=== PATIENT | female | born 1980 | race Hispanic/Latino ===

== ENCOUNTER → 2023-04-22 | Emergency (ER) | payer SELFPAY ==
[2023-04-22 09:04] LABS: Absolute Lymphocytes (CBC) 2.4 K/uL (0.7-4.9); Hematocrit 39.3 % (36.0-45.0); Lymphocytes % 42.1 % (15.3-44.8); MCV 84.1 fL (80-100); Platelets 238 thou/uL (152-406); RBC Red Blood Cell Count 4.67 M/uL (3.86-4.86)
[2023-04-22 09:22] LABS: Potassium 3.4 mEq/L (3.5-5.1); Troponin High Sensitivity 3.9 pg/mL (<58.9)
--- NOTE | 2023-04-22 09:32 | RAD REPORT ---
EXAM DESCRIPTION: [place] Single View04/22/2023 9:23 am CLINICAL HISTORY: CHEST PAIN COMPARISON: No comparisons TECHNIQUE: Portable AP view of the chest. FINDINGS: The lungs are clear. No pneumothorax or effusion. The cardiomediastinal contours are unre markable. IMPRESSION: No acute cardiopulmonary process.
--- NOTE | 2023-04-22 11:00 | ER ---
Nurse's Notes [facility] Name: Camila Hammond Age: 43 yrs Sex: Female : 1980 Arrival Date: 04/22/2023 Time: 08:39 Bed 5 Private MD: Diagnosis: Chest pain, unspecified Presentation: 04/22 08:46 Chief complaint: Patient states: CP for a few days. Coronavirus screen: Client denies ll1 travel out of the [place] in the last 14 days. At this time, the client does not indicate any symptoms associated with coronavirus-19. Ebola Screen: Patient denies travel to an Ebola-affected area in the 21 days before illness onset. Initial Sepsis Screen: Does the patient meet any 2 criteria? No. Patient's initial sepsis screen is negative. Does the patient have a suspected source of infection? No. Patient's initial sepsis screen is negative. Risk Assessment: Do you want to hurt yourself or someone else? Patient reports no desire to harm self or others. Onset of symptoms was April 20, 2023. 08:46 Method Of Arrival: Ambulatory ll1 08:46 Acuity: FELIX 3 ll1 Triage Assessment: 08:47 General: Appears uncomfortable, Behavior is calm, cooperative, appropriate for age. ll1 Pain: Complains of pain in chest. Cardiovascular: Reports chest pain. 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 - Social history:: Smoking status: Patient denies any tobacco usage or history of. - Family history:: not pertinent. - Hospitalizations: : No recent hospitalization is reported. Screenin:01 [facility] ED Fall Risk Assessment (Adult) History of falling in the last 3 months, ap3 including since admission No falls in past 3 months (0 pts). Abuse screen: Denies threats or abuse. Nutritional screening: No deficits noted. Tuberculosis screening: No symptoms or risk factors identified. Assessment: 09:06 General: Appears in no apparent distress. Behavior is calm, cooperative, appropriate ap3 for age. Pain: Complains of pain in chest Pain began gradually. Pain: Neuro: Level of Consciousness is awake, alert, obeys commands, Oriented to person, place, time, situation, Appropriate for age. Cardiovascular: Patient's skin is warm and dry. Respiratory: Airway is patent Respiratory effort is even, unlabored, Respiratory pattern is regular, symmetrical. Vital Signs: 08:46 BP 141 / 85; Pulse 67; Resp 16; Temp 98.1; Pulse Ox 100% on R/A; ll1 09:57 BP 130 / 87; Pulse 62; Pulse Ox 98% ; ap3 11:07 BP 130 / 87; Pulse 84; Pulse Ox 100% ; ap3 ED Course: 08:40 Patient arrived in ED. rg4 08:41 Federico Jones MD is Attending Physician. rn 08:46 Arm band placed on Patient placed in an exam room, on a stretcher. ll1 08:47 Triage completed. ll1 08:47 Alisa Falk, ACE is Primary Nurse. ap3 09:01 Initial lab(s) drawn, by me, sent to lab. EKG done, by ED staff, reviewed by Federico Jones MD. Inserted saline lock: 20 gauge in right antecubital area, using aseptic technique. Blood collected. 09:01 Patient maintains SpO2 saturation greater than 95% on room air. ap3 09:02 Patient has correct armband on for positive identification. Bed in low position. Call ap3 light in reach. Side rails up X 1. Adult w/ patient. engine monitor on. Pulse ox on. NIBP on. 09:02 Troponin HS Sent. ap3 09:02 NT PRO-BNP Sent. ap3 09:02 CBC with Diff Sent. ap3 09:02 Basic Metabolic Panel Sent. ap3 09:25 XRAY Chest (1 view) In Process Unspecified. EDMS 11:07 No provider procedures requiring assistance completed. IV discontinued, intact, ap3 bleeding controlled, No redness/swelling at site. Pressure dressing applied. 11:08 Provided Education on: discharge instructions. ap3 Administered Medications: No medications were administered Medication: 11:08 VIS not applicable for this client. ap3 Outcome: 10:59 Discharge ordered by . rn 11:08 Discharged to home ambulatory, with family, ap3 11:08 Condition: good 11:08 Discharge instructions given to patient, Instructed on discharge instructions, follow up and referral plans. Demonstrated understanding of instructions, follow-up care, 11:08 Patient left the ED. ap3 Signatures: Dispatcher [employer] EDMS Federico Jones MD MD rn Garcia, Rubi rg4 Alisa Falk RN RN ap3 Familia Candelaria RN RN ll1 Corrections: (The following items were deleted from the chart) 09:40 09:06 D-DIMER+COAG.LAB.BRZ drawn and sent. ap3 EDMS
--- NOTE | 2023-04-22 11:00 | EDPHYS ---
Physician Documentation [facility] Name: Camila Hammond Age: 43 yrs Sex: Female : 1980 Arrival Date: 04/22/2023 Time: 08:39 Bed 5 Private MD: ED Physician Federico Jones HPI: 04/22 08:57 This 43 yrs old Female presents to ER via Ambulatory with complaints of Arm rn Pain, Chest Pain. 08:57 The patient or guardian reports chest pain that is located primarily in the anterior rn chest wall, left. Onset: 3 day(s) ago. The pain radiates to the left arm. Associated signs and symptoms: Pertinent negatives: abdominal pain, cough, diaphoresis, palpitations, shortness of breath, syncope, vomiting. The chest pain is described as aching, sharp. Duration: The patient or guardian reports multiple episodes, that are intermittent. Modifying factors: The symptoms are alleviated by nothing. the symptoms are aggravated by nothing. Severity of pain: At its worst the pain was moderate in the emergency department the pain has improved. The patient has not experienced similar symptoms in the past. Patient reports approximately 3 days of intermittent left-sided chest pain that radiates to the left arm. No previous medical problems. Does not take any medication. No trauma. No cough or shortness of breath. No hemoptysis. No history of DVT or PE. No family of cardiac disease at her age but positive for cardiac disease at an older age. Does not smoke. No worsening with exertion.. 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 - Social history:: Smoking status: Patient denies any tobacco usage or history of. - Family history:: not pertinent. - Hospitalizations: : No recent hospitalization is reported. ROS: 08:57 Constitutional: Negative for fever, chills, and weight loss, Cardiovascular: Positive rn for chest pain Respiratory: Negative for shortness of breath, cough, wheezing, and pleuritic chest pain, Abdomen/GI: Negative for abdominal pain, nausea, vomiting, diarrhea, and constipation, Back: Negative for injury and pain, MS/Extremity: Negative for injury and deformity, Skin: Negative for injury, rash, and discoloration, Neuro: Negative for headache, weakness, and seizure, Exam: 08:57 Constitutional: This is a well developed, well nourished patient who is awake, alert, rn and in no acute distress. Head/Face: Normocephalic, atraumatic. Cardiovascular: Regular rate and rhythm. No murmur. No pulse deficits. Respiratory: Clear bilateral breath sounds. No increased work of breathing, no retractions or nasal flaring. Abdomen/GI: Soft, non-tender MS/ Extremity: Pulses equal, no cyanosis. Neurovascular intact. Full, normal range of motion. Equal circumference. Neuro: Awake and alert, GCS 15, oriented to person, place, time, and situation. Motor strength 5/5 in all extremities. Sensory grossly intact. Cerebellar exam normal. Normal gait. 10:43 ECG was reviewed by the Attending Physician. rn Vital Signs: 08:46 BP 141 / 85; Pulse 67; Resp 16; Temp 98.1; Pulse Ox 100% on R/A; ll1 09:57 BP 130 / 87; Pulse 62; Pulse Ox 98% ; ap3 11:07 BP 130 / 87; Pulse 84; Pulse Ox 100% ; ap3 MDM: 08:41 Patient medically screened. rn 10:58 Differential diagnosis: acute myocardial infarction, acute pericarditis, anxiety, rn costochondritis, esophagitis, gastritis, gastroesophageal reflux disease (GERD), pericarditis, pleurisy, pneumonia, pneumothorax, pulmonary embolus, stable angina. Data reviewed: vital signs, nurses notes, lab test result(s), EKG, radiologic studies, plain films, and as a result, I will discharge patient. Counseling: I had a detailed discussion with the patient and/or guardian regarding the historical points, exam findings, and any diagnostic results supporting the discharge/admit diagnosis, lab results, radiology results, the need for outpatient follow up, to return to the emergency department if symptoms worsen or persist or if there are any questions or concerns that arise at home. Special discussion: I discussed with the patient/guardian in detail that at this point there is no indication for admission to the hospital. It is understood, however, that if the symptoms persist or worsen the patient needs to return immediately for re-evaluation. ED course: Troponin negative x 2. No ischemic changes on EKG. Stable vital signs. Will DC home with return precautions and PCP follow-up. Told if worsens needs to follow-up with cardiology for stress test.. 04/22 08:52 Order name: Basic Metabolic Panel; Complete Time: 09:41 rn 04/22 08:52 Order name: CBC with Diff; Complete Time: 09:41 rn 04/22 08:52 Order name: NT PRO-BNP; Complete Time: 09:41 rn 04/22 08:52 Order name: Troponin HS; Complete Time: 09:41 rn 04/22 08:57 Order name: D-Dimer; Complete Time: 09:54 rn 04/22 10:11 Order name: Troponin High Sensitivity; Complete Time: 10:58 rn 04/22 08:52 Order name: XRAY Chest (1 view); Complete Time: 09:41 rn 04/22 08:52 Order name: EKG; Complete Time: 08:52 rn 04/22 08:52 Order name: Cardiac monitoring; Complete Time: 09:02 rn 04/22 08:52 Order name: EKG - Nurse/Tech; Complete Time: 08:56 rn 04/22 08:52 Order name: IV Saline Lock; Complete Time: 09:01 rn 04/22 08:52 Order name: Labs collected and sent; Complete Time: 09:01 rn 04/22 08:52 Order name: O2 Per Protocol; Complete Time: 09: rn 04/22 08:52 Order name: O2 Sat Monitoring; Complete Time: 09:01 rn EC:43 Rate is 66 beats/min. Rhythm is regular. QRS [place] is Normal. NE interval is normal. QRS rn interval is normal. QT interval is normal. No Q waves. T waves are Normal. No ST changes noted. Clinical impression: Normal ECG. Interpreted by me. Reviewed by me. Administered Medications: No medications were administered Disposition Summary: 04/22/23 10:59 Discharge Ordered Notes: Location: Home rn Problem: new rn Symptoms: have improved rn Condition: Stable rn Diagnosis - Chest pain, unspecified rn Followup: rn - With: Private Physician - When: As needed - Reason: Recheck today's complaints, Re-evaluation by your physician Discharge Instructions: - Discharge Summary Sheet rn - Nonspecific Chest Pain, Adult rn - Pain Without a Known Cause rn Forms: - Medication Reconciliation Form rn - Thank You Letter rn - Antibiotic lead burner supervisor - Prescription Opioid Use rn - Patient Portal Instructions rn - Leadership Thank You Letter rn Signatures: Dispatcher [employer] EDMS Federico Jones MD MD rn Lewis, Lynsay, RN RN ll1 Corrections: (The following items were deleted from the chart) 09:40 08:57 D-DIMER+COAG.LAB.BRZ ordered. EDMS EDMS
[2023-04-22 11:29] VITALS: TEMP 98.1; O2SAT 100
[2023-04-22 11:42] VITALS: BP 130/87
== END ==
LOC: ER 08:39
DX: R07.89 Other chest pain (principal)
CPT/HCPCS: 36415; 71045; 80048; 83880; 84484; 85025; 85379; 93005

== ENCOUNTER 2024-03-17 09:42 | Emergency (ER) | payer SELFPAY ==
[2024-03-17] MEDS ORDERED: ACETAMINOPHEN 500 MG TAB ONE (10:47)
[2024-03-17] MEDS ORDERED: KETOROLAC 30 MG/ML INJ ONE (10:47)
[2024-03-17] MEDS ORDERED: methocarbamoL 500 MG TAB ONE (10:47)
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
[2024-03-17 11:56] VITALS: BP 124/80; O2SAT 99
== END 2024-03-17 11:48 | disposition home or self-care (01) ==
LOC: ER 09:42
DX: S20.212A Contusion of left front wall of thorax, initial encounter (principal); V43.52XA Car driver injured in collision with other type car in traffic accident, initial encounter; Y93.9 Activity, unspecified; Y92.410 Unspecified street and highway as the place of occurrence of the external cause
CPT/HCPCS: 71045; 96372; 99284